=== PATIENT | female | born 1995 | race African-American/Black ===

== ENCOUNTER 2017-04-07 16:18 | Emergency (ER) | payer MEDICAID, OTHER ==
[~2017-04-07] VITALS: Ht 157.5 cm; Wt 102.0 kg
[2017-04-07] MEDS ORDERED: LIDOCAINE HCL 1% 20ML VIAL (Pyxis) INJ INFIL ONE (23:15)
[2017-04-07] MEDS ORDERED: BACITRACIN ZINC OINT UDPKT TOP ONE (23:15)
[2017-04-07] MEDS ORDERED: KETOROLAC 30MG/ML VIAL IM ONE (23:15)
[2017-04-07] MEDS ORDERED: ONDANSETRON 4MG ODT PO PRN (23:15)
[2017-04-08] MEDS ORDERED: HYDROCODONE/ACETAMINOPHEN 5/325MG TABLET PO ONE (00:30)
[2017-04-08 00:55] VITALS: BP 116/79
== END 2017-04-08 00:55 | disposition home or self-care (01) ==
LOC: ER 17:32
DX: L02.412 Cutaneous abscess of left axilla (principal)
CPT/HCPCS: 10060; 81025; 96372; 99283; J1885; J3490; Q0162; Z7610